=== PATIENT | male | born 1950 | race Caucasian/White ===

== ENCOUNTER 2019-04-24 22:39 | Emergency (ER) | payer MEDICARE ==
[~2019-04-24] VITALS: Ht 188 cm; Wt 109.0 kg
[~2019-04-24 22:39] MED LIST: CLOP75TA52 PO; LOSA1TAB25 PO; METO50TA82 PO; SIMV5TAB14 PO
[2019-04-25] MEDS ORDERED: MAALOX/HYOSCYAMINE/LIDOCAINE 45 ML BTL PO ONE
[2019-04-25] MEDS ORDERED: MORPHINE SULFATE 4 MG/ML, 1ML IVPush PRN
[2019-04-25] MEDS ORDERED: PANTOPRAZOLE 40 MG IV IV ONE
[2019-04-25] MEDS ORDERED: SODIUM CHLORIDE FLUSH 10ML SYR IVF ONE
[2019-04-25] MEDS ORDERED: ONDANSETRON 2MG/ML, 2ML IVPush ONE
[2019-04-25] MEDS ORDERED: MAALOX/HYOSCYAMINE/LIDOCAINE 45 ML BTL ONE (00:07)
[2019-04-25] MEDS ORDERED: MORPHINE SULFATE 4 MG/ML, 1ML ONE (00:07)
[2019-04-25] MEDS ORDERED: ONDANSETRON 2MG/ML, 2ML ONE (00:07)
[2019-04-25] MEDS ORDERED: PANTOPRAZOLE 40 MG IV ONE (00:07)
[2019-04-25 00:12] LABS: BASOPHILS # (AUTO) 0.05 x10^3/uL (0-0.1); BASOPHILS % (AUTO) 0 % (0-1); EOSINOPHILS # (AUTO) 0.25 x10^3/uL (0-0.4); EOSINOPHILS % (AUTO) 2 % (1-7); LYMPHOCYTES # (AUTO) 1.82 x10^3/uL (1-3.4); LYMPHOCYTES % (AUTO) 13 % (22-44); MD NO; MEAN CORPUSCULAR HEMOGLOBIN 32.8 pg (27.5-34.5); MEAN CORPUSCULAR HGB CONC 33.8 g/dL (33.2-36.2); MEAN CORPUSCULAR VOLUME 97.1 fL (81-97); MEAN PLATELET VOLUME 7.8 fL (7.4-10.4); MONOCYTES # (AUTO) 1.03 x10^3/uL (0.2-0.8); MONOCYTES % (AUTO) 8 % (2-9); NEUTROPHILS # (AUTO) 10.45 x10^3/uL (1.8-6.8); NEUTROPHILS % (AUTO) 77 % (42-75); PLATELET COUNT 236 x10^3/uL (130-400); RED BLOOD COUNT 5.07 x10^6/uL (4.38-5.82); RED CELL DISTRIBUTION WIDTH 14.3 % (9.4-14.8)
[2019-04-25 00:20] LABS: ALANINE AMINOTRANSFERASE 23 U/L (12-78); ALBUMIN 3.3 g/dL (3.4-5.0); ANION GAP 6 mmol/L (5-15); CALCIUM 8.6 mg/dL (8.5-10.1); CHLORIDE 109 mmol/L (98-107); CREATININE 1.01 mg/dL (0.7-1.3)
[2019-04-25 00:25] LABS: ALKALINE PHOSPHATASE 56 U/L (45-117); BILIRUBIN,TOTAL 0.4 mg/dL (0.2-1.0); TOTAL PROTEIN 6.8 g/dL (6.4-8.2); TROPONIN I < 0.015 ng/mL (0.000-0.045)
[2019-04-25 01:31] VITALS: BP 145/66
== END 2019-04-25 01:33 | disposition home or self-care (01) ==
LOC: ED 04-25 00:50
DX: K29.00 Acute gastritis without bleeding (principal); R07.89 Other chest pain; R09.89 Other specified symptoms and signs involving the circulatory and respiratory systems
CPT/HCPCS: 36415; 74022; 80053; 83690; 84484; 85025; 93005; 96374; 96375; 99285; C9113; J2270; J2405

== ENCOUNTER 2020-01-02 12:05 | Emergency (ER) | payer MEDICARE ==
[~2020-01-02] VITALS: Ht 188 cm; Wt 105.8 kg
--- NOTE | 2020-01-02 12:47 | NUR ---
ASSUME CARE OF PT AT THIS TIME.
--- NOTE | 2020-01-02 12:56 | NUR ---
PT RECLINED IN BED, REPORTS INTERMITTENT DIZZINESS, NONE AT THIS TIME. REPORTS CONSTIPATION FOR 4 DAYS, TODAY X4 DIARRHEA "IT'S BLACK WITH A NICE RED RING" DENIES PAIN AT THIS TIME.
[2020-01-02] MEDS ORDERED: ONDANSETRON 2MG/ML, 2ML ONE (13:29)
[2020-01-02] MEDS ORDERED: PANTOPRAZOLE 40 MG IV ONE (13:29)
[2020-01-02] MEDS ORDERED: MAALOX/HYOSCYAMINE/LIDOCAINE 45 ML BTL ONE (13:29)
[2020-01-02] MEDS ORDERED: MAALOX/HYOSCYAMINE/LIDOCAINE 45 ML BTL PO ONE (13:30)
[2020-01-02] MEDS ORDERED: SODIUM CHLORIDE FLUSH 10ML SYR IVF ONE (13:30)
[2020-01-02] MEDS ORDERED: ONDANSETRON 2MG/ML, 2ML IVPush ONE (13:30)
[2020-01-02] MEDS ORDERED: PANTOPRAZOLE 20MG TABLET PO ONE (13:30)
[2020-01-02] MEDS ORDERED: SODIUM CHLORIDE 0.9% 1,000ML IVBOLUS ONE (13:30)
[2020-01-02 13:33] LABS: BASOPHILS % (AUTO) 1 % (0-1); EOSINOPHILS % (AUTO) 0 % (1-7); LYMPHOCYTES % (AUTO) 8 % (22-44); MEAN CORPUSCULAR HEMOGLOBIN 31.5 pg (27.5-34.5); MEAN CORPUSCULAR HGB CONC 33.1 g/dL (33.2-36.2); MEAN PLATELET VOLUME 7.3 fL (7.4-10.4); MONOCYTES % (AUTO) 7 % (2-9); NEUTROPHILS % (AUTO) 85 % (42-75); PLATELET COUNT 265 x10^3/uL (130-400); RED BLOOD COUNT 4.51 x10^6/uL (4.38-5.82); RED CELL DISTRIBUTION WIDTH 14.1 % (9.4-14.8)
--- NOTE | 2020-01-02 13:35 | NUR ---
IV MEDS ADMINISTERED, PO HELD FOR AFTER US.
[2020-01-02 13:39] LABS: MD NO
[2020-01-02] MEDS ORDERED: PANTOPRAZOLE 20MG TABLET ONE (13:42)
[2020-01-02 13:44] LABS: ALANINE AMINOTRANSFERASE 23 U/L (12-78); CHLORIDE 107 mmol/L (98-107)
[2020-01-02 13:47] LABS: ALBUMIN 3.7 g/dL (3.4-5.0); ALKALINE PHOSPHATASE 56 U/L (45-117); ANION GAP 6 mmol/L (5-15); BILIRUBIN,TOTAL 0.6 mg/dL (0.2-1.0); CALCIUM 9.3 mg/dL (8.5-10.1); CREATININE 0.95 mg/dL (0.7-1.3)
[2020-01-02 14:22] LABS: MICROSCOPIC NOT IND
--- NOTE | 2020-01-02 14:46 | NUR ---
PT CHART UP FOR RECHECK. PT SITTING SLIGHTLY RECLINED IN BED WATCHING TELEVISION. NAD NOTED AT THIS TIME.
[2020-01-02 16:12] VITALS: BP 127/75
--- NOTE | 2020-01-02 16:12 | NUR ---
PT REFUSES REPEAT EKG, WANTS TO LEAVE.
== END 2020-01-02 16:14 | disposition home or self-care (01) ==
LOC: ED 13:45 → UNDOADMIN 15:05 → EDIP 15:05 → ED 16:14
DX: K92.1 Melena (principal); R94.31 Abnormal electrocardiogram [ECG] [EKG]; K21.9 Gastro-esophageal reflux disease without esophagitis
CPT/HCPCS: 36415; 76700; 80053; 81003; 83690; 85025; 86850; 86900; 93005; 96361; 96374; 99285; J2405; J7030